=== PATIENT | female | born 1955 | race African-American/Black ===

== ENCOUNTER 2017-02-27 09:04 | Emergency (ER) | payer SELFPAY ==
[~2017-02-27 09:04] MED LIST: MMW SWISH-SPIT
--- NOTE | 2017-02-27 13:02 | RADRPT ---
EXAM DATE/TIME: 02/27/2017 09:48 [place] COMPARISON: No previous studies available for comparison. INDICATIONS : Left foot and ankle pain on lateral side. MEDICAL HISTORY : None. SURGICAL HISTORY : None. ENCOUNTER: Initial ACUITY: 2 days PAIN SCORE: 10/10 LOCATION: Left foot. FINDINGS: Three view examination of the left foot demonstrates soft tissue swelling without dislocation, or fra cture. The tarsal bones appear intact. The interphalangeal and metatarsophalangeal joints are inta ct. The calcaneus is intact. Bony mineralization is normal. CONCLUSION: There is some mild soft tissue swelling. No acute bony abnormalities or fracture. Jordan Fleming MD on February 27, 2017 at 9:56 Board Certified Radiologist. This report was verified electronically.
[2017-02-27] MEDS ORDERED: LIVA1TAB PO (13:22)
[2017-02-27] MEDS ORDERED: CARV6.252 PO (13:22)
--- NOTE | 2017-02-27 14:48 | PD ---
HPI . left foot pain Chief Complaint: left foot pain Time Seen by Provider: 09:25 Travel History International Travel<30 days: No Contact w/Intl Traveler<30days: No Traveled to known affect area: No History of Present Illness HPI 61-year-old female with history of hypertension and hyperlipidemia here with complaints of left foot pain status post fall. Patient was at [facility] when she somehow got caught in the shopping cart and twisted her foot. She denies any head injury or loss of consciousness. She took some Tylenol yesterday with minimal relief. Now she is complaining of 10/10 pain and left foot on the lateral aspect. She tells me that when she walks and sometimes radiates up to her leg. She is ambulatory. She follows up with [facility]. Vital signs: Heart rate 63, respiratory rate 15, BP 158/80, O2 99% PFSH Past Medical History Hx Anticoagulant Therapy: No Asthma: Yes Blood Disorders: No Anxiety: Yes Depression: Yes Heart Rhythm Problems: No Cancer: No Cardiovascular Problems: Yes (HTN) High Cholesterol: Yes Chemotherapy: No Chest Pain: No Congestive Heart Failure: No COPD: No Coronary Artery Disease: Yes Diabetes: No Diminished Hearing: No Endocrine: Yes Genitourinary: No Hypertension: Yes Immune Disorder: No Musculoskeletal: No Neurologic: No Psychiatric: Yes Reproductive: No Respiratory: Yes Radiation Therapy: No Sleep Apnea: No Thyroid Disease: Yes Menopausal: Yes Past Surgical History Section: Yes Tonsillectomy: Yes Social History Alcohol Use: No Tobacco Use: No Substance Use: No Allergies-Medications (Allergen,Severity, Reaction): Coded Allergies: No Known Allergies (Verified , 01/21/16) Reported Meds & Prescriptions Reported Meds & Active Scripts Active Reported Livalo (Pitavastatin) 1 Mg Tab 1 Mg PO DAILY Carvedilol 6.25 Mg Tab 6.25 Mg PO BID Review of Systems General / Constitutional: No: Fever Eyes: No: Visual changes HENT: No: Headaches Cardiovascular: No: Chest Pain or Discomfort Respiratory: No: Shortness of Breath Gastrointestinal: No: Abdominal Pain Genitourinary: No: Dysuria Musculoskeletal: Positive: Pain (left foot) Skin: No Rash Neurologic: No: Weakness Psychiatric: No: Depression Endocrine: No: Polydipsia Hematologic/Lymphatic: No: Easy Bruising Physical Exam Narrative GENERAL: AAO x 3, no acute distress, Well-nourished, well-developed patient. SKIN: Warm and dry. No visible rashes or bruising. HEAD: Normocephalic and atraumatic. EYES: No scleral icterus. No injection or drainage. EOM intact, PERRLA ENT: No nasal drainage noted. Mucous membranes pink. Airway patent. NECK: Supple, trachea midline. No JVD. CARDIOVASCULAR: Regular rate and rhythm without murmurs, gallops, or rubs. RESPIRATORY: Breath sounds equal bilaterally. No accessory muscle use. No rhonchi or rales. GASTROINTESTINAL: Abdomen soft, non-tender, nondistended. EXTREMITIES: No cyanosis or edema. Full range of motion of the left lower extremity from the hip all the way down. There is some tenderness to the lateral foot. There is slight edema over the lateral ankle, however rotation is normal. There is no point tenderness there. Pedal pulses intact. Rest of the extremity is unremarkable. Right extremity unremarkable. Patient is ambulatory BACK: No obvious deformity. NEURO: CN II-12 intact, larriman helper strength normal b/l, UE and LE 5/5, no focal deficits PSYCH: AAO x 3, normal affect. Data Data Orders Orders Foot, Complete ([id number]) (02/27/17 09:25) MDM Medical Decision Making Medical Screen Exam Complete: Yes Emergency Medical Condition: Yes Medical Record Reviewed: Yes Differential Diagnosis Bone contusion, ankle sprain, foot sprain, less likely for fracture Narrative Course 61-year-old female here with complaints of left foot pain status post slip and fall. On examination she does have some pain to the lateral left foot. I've ordered an x-ray to rule out any type of bony abnormality also I doubt there will be any. I've administered Toradol 60 mg IM here in the emergency department. X-ray of the foot unremarkable except for some soft tissue swelling without fracture. I discussed the findings with the patient. We've applied an Randy wrap. I recommend RICE. Advised ibuprofen at home. Recommend follow-up with primary care provider if pain persists past 7-10 days. Diagnosis Primary Impression: Foot pain, left Additional Instructions: Please return to emergency department if your symptoms return or worsen. Follow up with your primary care provider. Med/Other Pt SpecificInfo: No Change to Meds Disposition: 01 DISCHARGE HOME Oly Rivers Feb 27, 2017 14:48
== END 2017-02-27 10:30 | disposition home or self-care (01) ==
LOC: NEPD 09:04
DX: M79.672 Pain in left foot (principal); J45.909 Unspecified asthma, uncomplicated; I10 Essential (primary) hypertension; F41.9 Anxiety disorder, unspecified; F32.9 Major depressive disorder, single episode, unspecified; I25.10 Atherosclerotic heart disease of native coronary artery without angina pectoris; E07.9 Disorder of thyroid, unspecified; Z79.899 Other long term (current) drug therapy
CPT/HCPCS: 73630; 96372

== ENCOUNTER 2017-07-02 14:11 | Emergency (ER) | payer SELFPAY ==
[~2017-07-02] VITALS: Ht 165.1 cm; Wt 75.0 kg
[~2017-07-02 14:11] MED LIST changes: +CARV6.252 PO; +LIVA1TAB PO; -MMW SWISH-SPIT
[2017-07-02 14:15] VITALS: BP 97/51; PULSE 96; RESP 18; TEMP 97.7; O2SAT 90
[2017-07-02 14:24] VITALS: BP 89/58; PULSE 91; RESP 18; O2SAT 93
[2017-07-02] MEDS ORDERED: EPINEPHrine HCL (1:1000) 1 MG/ML VIAL IM ONE (14:30)
[2017-07-02] MEDS ORDERED: methylPREDNISolone SOD SUCC 125 MG/2 ML VIAL IV PUSH ONE (14:30)
[2017-07-02] MEDS ORDERED: diphenhydrAMINE HCL 50 MG/ML VIAL IV PUSH ONE (14:30)
[2017-07-02] MEDS ORDERED: RESP: ALBUTEROL 2.5 MG/IPRATROPIUM 0.5 MG NEB (SCH) INH ONE (14:30)
[2017-07-02] MEDS: RESP: ALBUTEROL 2.5 MG/3 ML NEB (SCH) INH (14:40)
[2017-07-02] MEDS ORDERED: ONDANSETRON HCL 4 MG/2 ML VIAL ONE (14:41)
--- NOTE | 2017-07-02 14:54 | PD ---
HPI Chief Complaint: Allergic/Adverse Reaction Time Seen by Provider: 14:22 Travel History International Travel<30 days: No Contact w/Intl Traveler<30days: No Traveled to known affect area: No History of Present Illness HPI This is a 62-year-old female with a history of hypertension, who presents here with complaints of swelling of her tongue and throat, difficulty breathing and diffuse urticarial itching. The patient [facility] when she started experiencing these symptoms. She states they've progressed extremely quickly. When looking through old records, patient has had similar episode also when at the [facility]. She is not currently taking any Randy inhibitors. This came on suddenly. O2 sat was in the high 80s and low 90s. PFSH Past Medical History Hx Anticoagulant Therapy: No Asthma: Yes Blood Disorders: No Anxiety: Yes Depression: Yes Heart Rhythm Problems: No Cancer: No Cardiovascular Problems: Yes (HTN) High Cholesterol: Yes Chemotherapy: No Chest Pain: No Congestive Heart Failure: No COPD: No Coronary Artery Disease: Yes Diabetes: No Diminished Hearing: No Endocrine: Yes Genitourinary: No Hypertension: Yes Immune Disorder: No Musculoskeletal: No Neurologic: No Psychiatric: Yes Reproductive: No Respiratory: Yes Radiation Therapy: No Sleep Apnea: No Thyroid Disease: Yes Tetanus Vaccination: < 5 Years Menopausal: Yes Past Surgical History Section: Yes Tonsillectomy: Yes Social History Alcohol Use: No Tobacco Use: No Substance Use: No Allergies-Medications (Allergen,Severity, Reaction): Coded Allergies: No Known Allergies (Verified , 01/21/16) Reported Meds & Prescriptions Reported Meds & Active Scripts Active Epipen 2-Mendoza Inj (Epinephrine) 0.3 Mg/0.3 Ml Pfpen 0.3 Mg IM ONCE PRN Zantac 150 Maximum Strength (Ranitidine HCl) 150 Mg Tab 150 Mg PO BID 10 Days Prednisone (48) 10 mg tab Dose Pack (Prednisone) 10 Mg Dspk 10 Mg PO DIRECTED Reported Tramadol (Tramadol HCl) 50 Mg Tab 50 Mg PO DAILY PRN Trazodone (Trazodone HCl) 50 Mg Tab 50 Mg PO HS Carvedilol 25 Mg Tab 25 Mg PO BID Review of Systems Except as stated in HPI: all other systems reviewed are Neg General / Constitutional: No: Fever, Chills HENT: Positive: Other (swelling of her tongue and difficulty swallowing), No: Headaches, Neck Pain Cardiovascular: No: Chest Pain or Discomfort, Palpitations Respiratory: Positive: Shortness of Breath, No: Cough, Wheezing Gastrointestinal: No: Nausea, Vomiting, Abdominal Pain Musculoskeletal: No: Weakness, Pain Skin: Positive Itching (diffuse) Neurologic: No: Weakness, Dizziness, Headache Physical Exam Narrative GENERAL: Well-developed well-nourished female who appears to be in mild to moderate distress. The patient has redness to her periorbital area. SKIN: Focused skin assessment warm/dry. HEAD: Atraumatic. Normocephalic. EYES: No scleral icterus. No injection or drainage. ENT: No nasal bleeding or discharge. Mucous membranes pink and moist. Patient has swelling of her lower lip. Patient also has mild swelling of her tongue. There is no stridor noted. NECK: Trachea midline. No JVD. Supple. CARDIOVASCULAR: Regular rate and rhythm. No murmur appreciated. RESPIRATORY: Decreased breath sounds at the base with fine wheezing. Equal breath sounds in the upper airway. GASTROINTESTINAL: Abdomen soft, non-tender, nondistended. Hepatic and splenic margins not palpable. MUSCULOSKELETAL: No obvious deformities. No clubbing. No cyanosis. No edema. Diffuse urticaria on her arms and lower legs. NEUROLOGICAL: Awake and alert. No obvious cranial nerve deficits. Motor grossly within normal limits. Normal speech. Data Data Last Documented VS Vital Signs Date Time Temp Pulse Resp B/P (MAP) Pulse Ox O2 Delivery O2 Flow Rate FiO2 07/02/17 15:15 78 18 100 07/02/17 14:29 Nasal Cannula 2.00 07/02/17 14:15 97.7 Orders Orders Epinephrine (1:1000) Inj (Adrenalin (1:1 (07/02/17 14:30) Iv Access Insert/Monitor (07/02/17 14:27) Ecg Monitoring (07/02/17 14:27) Oximetry (07/02/17 14:27) Diphenhydramine Inj (Benadryl Inj) (07/02/17 14:30) Methylprednisolone So Succ Inj (Solumedr (07/02/17 14:30) Albuterol-Ipratropium Neb (Duoneb Neb) (07/02/17 14:30) Albuterol Neb (Albuterol Neb) (07/02/17 14:30) Ondansetron Inj (Zofran Inj) (07/02/17 14:41) Electrocardiogram (07/02/17 14:48) Ondansetron Inj (Zofran Inj) (07/02/17 15:00) MDM Medical Decision Making Medical Screen Exam Complete: Yes Emergency Medical Condition: Yes Differential Diagnosis Acute anaphylaxis versus angioedema versus dermatitis Narrative Course 62-year-old female this and hypertension, presents here after having an acute allergic reaction. The patient was at her hairdresser's. She states they're using hair, extensions, clue. She developed acute itching and periorbital edema as well as swollen lower lip and tongue. Patient's sats were in the high 80s. She was given 0.3 mg of IM epinephrine, Benadryl 50 mg I V times one dose , Solu-Medrol 125 mg I V times one. The patient's been observed for 4-1/2 hours. She is much improved. She is asymptomatic at the time of discharge. She'll be discharged with a prescription for prednisone taper. She also be given up her prescription for EpiPen. She'll be given a prescription for Zantac 150 twice a day for 10 days. She is instructed to take Benadryl 25 mg every 6 hours for the next 2-3 days. She is instructed to return if she does any worsening symptoms i.e. swelling, difficult to breathing, difficulty swelling, or any other reason the concerns her. Diagnosis Primary Impression: Acute allergic reaction Additional Instructions: Benadryl 25 mg every 6 hours 2-3 days. Return if shortness of breath, difficulty breathing, difficulty swelling, or any other reason that concerned her. Avoid going to the [facility]. Med/Other Pt SpecificInfo: Prescription(s) given Scripts Epinephrine Inj (Epipen 2-Mendoza Inj) 0.3 Mg/0.3 Ml Pfpen 0.3 MG IM ONCE Y for ALLERGIC REACTION, #1 PACK 0 Refills Prov: Doc Bailey MD 07/02/17 Ranitidine (Zantac 150 Maximum Strength) 150 Mg Tab 150 MG PO BID for 10 Days, #20 TAB Prov: Doc Bailey MD 07/02/17 Prednisone (48) 10 mg tab Dose Pack (Prednisone (48) 10 mg tab Dose Pack) 10 Mg Dspk 10 MG PO DIRECTED for Inflammation, #1 DSPK 0 Refills Prov: Doc Bailey MD 07/02/17 Disposition: 01 DISCHARGE HOME Condition: Stable Doc Bailey MD Jul 02, 2017 14:54
[2017-07-02] MEDS ORDERED: ONDANSETRON HCL 4 MG/2 ML VIAL IV PUSH ONE (15:00)
[2017-07-02 15:15] VITALS: PULSE 78; RESP 18; O2SAT 100
[2017-07-02] MEDS ORDERED: CARV25TA PO (15:17)
[2017-07-02] MEDS ORDERED: TRAM50TA PO (15:17)
[2017-07-02] MEDS ORDERED: TRAZ50TA12 PO (15:17)
--- NOTE | 2017-07-02 16:36 | EKG ---
Date Performed: 07/02/2017 Time Performed: 14:51:59 PTAGE: 62 years EKG: Sinus rhythm NORMAL ECG PREVIOUS TRACING : 07/15/2011 21.06 Compared to prior tracing no significant change DOCTOR: Yareli Monique Interpretating Date/Time 07/02/2017 16:34:41
[2017-07-02] MEDS ORDERED: EPIP0.3I IM (18:45)
[2017-07-02] MEDS ORDERED: ZANTTAB PO (18:45)
[2017-07-02] MEDS ORDERED: PRED10PA2 PO (18:45)
[2017-07-02 19:07] VITALS: BP 124/84
== END 2017-07-02 19:12 | disposition home or self-care (01) ==
LOC: NEPE 14:11
DX: T78.40XA Allergy, unspecified, initial encounter (principal); L29.9 Pruritus, unspecified; R22.0 Localized swelling, mass and lump, head; R06.02 Shortness of breath; I10 Essential (primary) hypertension; J45.909 Unspecified asthma, uncomplicated; F41.9 Anxiety disorder, unspecified; E78.00 Pure hypercholesterolemia, unspecified; I25.10 Atherosclerotic heart disease of native coronary artery without angina pectoris
CPT/HCPCS: 93005; 94640; 94664; 96372; 96374; 96375; 99284; J0171; J1200; J2405; J2930; J7613